=== PATIENT | male | born 1975 | race Caucasian/White ===

== ENCOUNTER 2022-06-17 00:01 | Day surgery (SDC) | payer OTHER, SELFPAY ==
[2022-06-07 13:39] VITALS: BMI 33.5
[2022-06-17 06:21] VITALS: BP 119/91; PULSE 74; RESP 16; TEMP 36.3; O2SAT 100; BMI 35.2
[2022-06-17] MEDS: LACTATED RINGERS 1,000 ML 150 ML IV CONT (06:28)
--- NOTE | 2022-06-17 07:29 | PM.HPGS ---
History of Present Illness History of Present Illness Consent: Risks, benefits, and alternatives have been discussed and questions answered. Patient agrees to proceed with procedure. Chief complaint: neoplasm screening Narrative: Db Sadler Jr. is a 47 year old male here for first screening colonoscopy Review of Systems Constitutional: Constitutional: Denies headache(s) and Denies weakness Eyes: Eyes: Denies blurry vision ENT: Reports Normal hearing present, Denies headache(s) and Denies neck pain Cardiovascular: Cardiovascular: Denies chest pain and Denies dyspnea Respiratory: Respiratory: Denies dyspnea Gastrointestinal: Gastrointestinal: Reports no additional gastrointestinal complaints Genitourinary: Genitourinary: Denies dysuria Musculoskeletal: Musculoskeletal: Denies neck pain Integumentary/Breasts: Skin/Breast: Denies dry skin Neurologic: Reports Normal hearing present, Denies headache(s) and Denies weakness Psychiatric: Psychiatric: Denies anxiety Endocrine: Endocrine: Denies change in body appearance Hematologic/Lymphatic: Hematologic/Lymphatic: Denies easy bleeding Allergic/Immunologic: Allergic/Immunologic: Denies urticaria PMFSH Past Medical History Medical History (Updated 06/17/22 @ 07:29 by Khrsi Cm MD) Colon cancer screening Family History Family History (Updated 01/11/16 @ 15:07 by DOCTOR UNKNOWN) Mother Family history of bipolar disorder Family history of hepatitis Patient's mother is Grandparent Family history of arthritis Family history of malignant neoplasm Diabetes mellitus Father Family history of attention deficit hyperactivity disorder (ADHD) Family history of atrial fibrillation Other Family history of allergic disorder Family history of scoliosis Social History Social History Smoking packs per day: 1 Smoking cigarettes per day: 20.0 Years smoked: 12 Smoking pack-years: 12.00 Smoking status: Former smoker Tobacco type: cigarettes Second hand tobacco smoke exposure: No Smoking end date: 08/04/07 Alcohol intake: current Drinks per week: 24 Alcohol use details: BEER Substance use: never Substance use type: does not use Living arrangements: with family Spiritual care concerns: No Meds Home Medications and Allergies Home Medications Medication Instructions Recorded Confirmed Type cetirizine 10 mg tablet (Allergy 10 mg PO DAILY 06/07/22 06/17/22 History Relief (cetirizine)) fluticasone propionate 50 2 spray intranasal DAILY 06/07/22 06/17/22 History mcg/actuation nasal spray,suspension ginkgo biloba 1 tablet PO DAILY 06/07/22 06/17/22 History metoprolol succinate 25 mg 25 mg PO DAILY 06/07/22 06/17/22 History tablet,extended release 24 hr multivitamin 1 tablet PO DAILY 06/07/22 06/17/22 History Allergies Allergy/AdvReac Type Severity Reaction Status Date / Time No Known Allergies Allergy Verified 06/17/22 06:20 Vital Signs Vital Signs - 24 hr 06/17/22 06:21 Temperature 97.3 F L Pulse Rate 74 Respiratory Rate 16 Blood Pressure 119/91 H Pulse Oximetry 100 Oxygen Delivery Room Air Exam Const: General: comfortable and no acute distress HENMT: Face/Nose/Sinus: Normal nares present Eyes: General: appearance normal, both eyes and all related structures Neck: Neck: no JVD Resp: Auscultation: clear to auscultation bilaterally Cardio: Rate: regular rate Rhythm: regular rhythm GI: Inspection: non-distended GI Palp: Yes Soft to palpation Skin: General skin exam: normal color Neuro: General: gait normal Speech: normal speech Extrem: General: normal to inspection Psych: Mental Status: mental status grossly normal Assessment and Plan Assessment and plan (1) Colon cancer screening: Code(s): Z12.11 - Encounter for screening for malignant neoplasm of colon Status: Acute Assessment an
--- NOTE | 2022-06-17 07:30 | WPDANESEPPF ---
Anes - Initial Pre Proc Eval Procedure: Operation Date: 06/17/22 07:30 Proposed Procedures p Screening Colonoscopy - Khris Cm MD Date/Time: 06/17/22 07:30 Surgeon: Khris Cm MD Pre Op Diagnosis: neoplasm screening Patient Data Age: 47 Gender: M Height: 1.73 m Weight: 104.9 kg Last Vital Signs Temp 97.3 F L 06/17/22 06:21 Pulse 74 06/17/22 06:21 Resp 16 06/17/22 06:21 BP 119/91 H 06/17/22 06:21 Pulse Ox 100 06/17/22 06:21 O2 Del Method Room Air 06/17/22 06:21 Allergies Allergy/AdvReac Type Severity Reaction Status Date / Time No Known Allergies Allergy Verified 06/17/22 06:20 Home Medications Medication Instructions Recorded Confirmed Type cetirizine 10 mg tablet (Allergy 10 mg PO DAILY 06/07/22 06/17/22 History Relief (cetirizine)) fluticasone propionate 50 2 spray intranasal DAILY 06/07/22 06/17/22 History mcg/actuation nasal spray,suspension ginkgo biloba 1 tablet PO DAILY 06/07/22 06/17/22 History metoprolol succinate 25 mg 25 mg PO DAILY 06/07/22 06/17/22 History tablet,extended release 24 hr multivitamin 1 tablet PO DAILY 06/07/22 06/17/22 History Patient hx anesthesia problems: none Family hx anesthesia problems: none Results Review: All pre-operative results and documents have been reviewed as part of the pre-operative evaluation. [facility] Past Medical History Medical History (Updated 06/17/22 @ 07:29 by Khris Cm MD) Colon cancer screening Family History Family History (Updated 01/11/16 @ 15:07 by DOCTOR UNKNOWN) Mother Family history of bipolar disorder Family history of hepatitis Patient's mother is Grandparent Family history of arthritis Family history of malignant neoplasm Diabetes mellitus Father Family history of attention deficit hyperactivity disorder (ADHD) Family history of atrial fibrillation Other Family history of allergic disorder Family history of scoliosis Social History Social History Smoking packs per day: 1 Smoking cigarettes per day: 20.0 Years smoked: 12 Smoking pack-years: 12.00 Smoking status: Former smoker Tobacco type: cigarettes Second hand tobacco smoke exposure: No Smoking end date: 08/04/07 Alcohol intake: current Drinks per week: 24 Alcohol use details: BEER Substance use: never Substance use type: does not use Living arrangements: with family Spiritual care concerns: No Anes - Eval Final PreProcedure Day of Procedure 06/17/22 07:30 Patient weight: normal Heart: irregular rhythm Lungs: clear to auscultation Neurological: alert and oriented Last oral intake: >/= 8 hours ASA classification: III Emergent: no Anesthetic plan: proceed Anesthesia type and monitoring: general GIVS and standard monitoring Results Review: All pre-operative results and documents have been reviewed as part of the pre-operative evaluation. Informed Consent: The patient's anesthetic plan and its attendant risks and benefits were discussed with the patient/family/POA. Questions were solicited and answers provided to the satisfaction of the patient/family/POA.
[2022-06-17 07:49] VITALS: BP 114/70; PULSE 143; RESP 30; O2SAT 95
[2022-06-17 07:59] VITALS: BP 120/64; PULSE 129; RESP 28; O2SAT 97
[2022-06-17 08:06] VITALS: PULSE 145
[2022-06-17] MEDS: METOPROLOL SUCCINATE EXT REL 25 MG TABCR PO (08:06)
[2022-06-17 08:09] VITALS: BP 124/79; PULSE 145; RESP 24; O2SAT 99
[2022-06-17 08:19] VITALS: BP 117/74; PULSE 129; RESP 20; O2SAT 99
--- NOTE | 2022-06-17 08:25 | SUR.PHASEII ---
0755: DR BIRMINGHAM MADE AWARE OF PT'S HEART RATE RANGING FROM 110s TO 140s, PT RUNNING A FIB WHICH IS NORMAL FOR HIM, DR BIRMINGHAM SEEING PT, ORDER FOR METOPROLOL RECEIVED, MEDICATION GIVEN, PT EDUCATED AND STATES UNDERSTANDING. PT STATES HE WILL FOLLOW UP WITH HIS [employer] [facility] SPECIALIST TOMORROW.
== END 2022-06-17 08:28 | disposition home or self-care (01) ==
PROVIDERS: Visit Provider Internal Medicine Gastroenterology
PROC: 0DJD8ZZ Inspection of Lower Intestinal Tract, Via Natural or Artificial Opening Endoscopic (ICD-10-PCS; CPT 45378; principal; 2022-06-17 07:30)
DX: Z12.11 Encounter for screening for malignant neoplasm of colon (principal); K63.5 Polyp of colon; K64.8 Other hemorrhoids; Z87.891 Personal history of nicotine dependence
CPT/HCPCS: 45385; 88305; A9270; J2704; J7120